=== PATIENT | male | born 1965 | race Caucasian/White ===

== ENCOUNTER 2019-02-02 19:22 | Emergency (ER) | payer OTHER ==
--- NOTE | 2019-02-02 19:26 | ER Report ---
History and Physical Time Seen By MD: 19:26 HPI/ROS CHIEF COMPLAINT: Chest pain HISTORY OF PRESENT ILLNESS: This is a 53-year-old male. He was sent by urgent care. Evaluation for chest pressure there revealed an elevated troponin. Transferred here for NSTEMI. Patient continues to have substernal chest pressure. Nonradiating. No shortness of breath. No nausea. Pain started at 1600 hrs. while standing and talking to people. Worsened with exertion. No history of tobacco use, alcohol, drugs. He's had one episode of chest pain in the past which was due to pericarditis. This is very different than that prior episode. No fevers or chills or recent illness. Aspirin 324 mg given at urgent care. Blood pressure is elevated but no history of hypertension. No history of diabetes or hyperlipidemia. Allergies: Coded Allergies: Penicillins (Verified Allergy, Mild, HIVES, 09/28/10) Home Meds Discontinued Reported Medications Ibuprofen (Motrin) 600 Mg Tab, 600 MG PO Q6H, #20 0 Refills 09/28/10 Reviewed Nurses Notes: Yes Hx Substance Use Disorder: No Hx Alcohol Use: No Constitutional Vital Sign - Last 24 Hours 02/02/19 02/02/19 02/02/19 02/02/19 19:22 19:26 19:28 19:45 Temp 99.0 Pulse ??? 92 Resp 17 B/P (MAP) 174/108 174/108 (130) 171/106 (127) Pulse Ox 92 O2 Delivery Room Air 02/02/19 02/02/19 02/02/19 02/02/19 19:49 19:52 20:00 20:17 Pulse 88 Resp 10 B/P (MAP) 142/99 (113) 134/90 (105) 144/94 (111) Pulse Ox 93 02/02/19 02/02/19 02/02/19 02/02/19 20:20 20:22 20:30 20:40 Pulse 97 Resp 13 B/P (MAP) 143/88 (106) 142/91 (108) 123/84 (97) Pulse Ox 95 02/02/19 02/02/19 02/02/19 02/02/19 20:50 20:52 21:00 21:10 Pulse 85 Resp 8 B/P (MAP) 127/82 (97) 135/84 (101) 114/78 (90) Pulse Ox 91 Physical Exam General Appearance: The patient is alert. No acute distress. Eyes: Pupils are equal, round. No pallor, injection or icterus. ENT: Mucous membranes are moist. Respiratory: Lungs are clear to auscultation. Cardiovascular: Regular rate and rhythm. No murmurs, gallops or rubs. Normal capillary refill. No edema. Gastrointestinal: Abdomen is soft and non tender. Nondistended. Normal active bowel sounds. Neurological: Alert and oriented x3. No focal neurologic deficits Skin: Warm and dry. Musculoskeletal: Not able to reproduce chest pain with palpation of the chest or back. DIFFERENTIAL DIAGNOSIS: After history and physical exam, differential diagnosis was considered for chest pain/pressure that appears to be a non-ST elevation [place] with elevated troponin. Medical Decision Making Data Points Laboratory Hematology Test 02/02/19 20:23 Troponin I 1.650 ng/ml Chemistry Test 02/02/19 20:23 Troponin I 1.650 ng/ml EKG/Imaging EKG Interpretation Reviewed EKGs from urgent care, no signs of ischemia, ST elevation or T-wave changes 12 lead EKG: Rhythm: Normal sinus rhythm, rate 80 to [place]: normal QRS: normal ST segments: normal Imaging Reviewed the chest x-ray done at urgent care, no acute cardiopulmonary processes ED Course/Re-evaluation Clinical Indication for ER IV: IV Access ED Course Gave the patient sublingual nitroglycerin times one dose. Pain is gone. Blood pressure has come down significantly. Discussed the case with Dr. Mckinley, at [facility], and we will go ahead and start 1 mg/kg of subcutaneous Lovenox and add metoprolol 25 mg by mouth dose. I then discussed the case with the hospitalist, Dr. Najera, who accepted the patient for transfer. Decision to Disposition Date: Feb 02, 2019 Decision to Disposition Time: 20:18 Depart Departure Latest Vital Signs Vital Signs Date Time Temp Pulse Resp B/P (MAP) Pulse Ox O2 Delivery O2 Flow Rate FiO2 02/02/19 21:10 114/78 (90) 02/02/19 20:52 85 8 91 02/02/19 19:26 99.0 Room Air Impression: Primary Impression: Non-ST elevation [place] (NSTEMI) Condition: Condition Unchanged Disposition: [facility]FER TO [facility] New Scripts No Active Prescriptions or Reported Meds EDUAR STEPHENS MD Feb 02, 2019 19:26
[2019-02-02] MEDS ORDERED: NITROGLYCERIN 0.4 MG SUBL SL ONE (19:35)
[2019-02-02] MEDS ORDERED: ASPIRIN 81 MG CHEW PO ONE (19:35)
[2019-02-02] MEDS ORDERED: METOPROLOL TART 50 MG TAB PO ONE (20:00)
[2019-02-02] MEDS ORDERED: ENOXAPARIN 100 MG/ML SYR SC SCH (21:00)
--- NOTE | 2019-02-02 21:02 | EKG ---
FACILITY: [facility] [place] PATIENT NAME: MIN COOL : [id number] MR: [id number] V: [id number] EXAM DATE: ORDERING PHYSICIAN: EDUAR STEPHENS TECHNOLOGIST: SANJIV Desai Reason : CP Blood Pressure : / mmHG Vent. Rate : 082 BPM Atrial Rate : 082 BPM P-R Int : 172 ms QRS Dur : 086 ms QT Int : 372 ms P-R-T Axes : 036 064 036 degrees QTc Int : 434 ms Normal sinus rhythm Normal ECG Confirmed by KUNAL HAND ([id number]) on 02/02/2019 10:11:45 PM Referred By: Confirmed By:KUNAL HAND
[2019-02-02 21:10] VITALS: BP 114/78
== END 2019-02-02 21:25 | disposition short-term general hospital (02) ==
LOC: ER 19:57
DX: I21.4 Non-ST elevation (NSTEMI) myocardial infarction (principal)
CPT/HCPCS: 84484; 93005; 99285; J1650

== ENCOUNTER → 2019-02-02 | Outpatient (CLI) | payer OTHER ==
[~2019-02-02] MED LIST: IBU600 PO
== END ==
LOC: AMB 21:10
PROVIDERS: ATTEND Nurse Practitioner
DX: I21.4 Non-ST elevation (NSTEMI) myocardial infarction (principal)
CPT/HCPCS: A0425; A0426

== ENCOUNTER → 2019-02-02 | Outpatient (REF) | payer OTHER ==
[2019-02-02 18:32] LABS: PLATELET COUNT, AUTOMATED 285 K/uL (150-450)
== END ==
PROVIDERS: ATTEND Nurse Practitioner Family
DX: R07.9 Chest pain, unspecified (principal)
CPT/HCPCS: 82040; 82247; 82310; 82374; 82435; 82565; 82947; 84075; 84132; 84155; 84295; 84450; 84460; 84484; 84520; 85025

== ENCOUNTER → 2019-04-22 | Outpatient (CLI) | payer SELFPAY | LOC: US 01:47 | PROVIDERS: ATTEND Internal Medicine Cardiovascular Disease | DX: I21.4 Non-ST elevation (NSTEMI) myocardial infarction (principal) | CPT/HCPCS: 93306 ==